=== PATIENT | female | born 1990 | race Hispanic/Latino ===

== ENCOUNTER 2018-06-28 02:54 | Inpatient (IN) | payer OTHER, SELFPAY ==
[2018-06-28] MEDS ORDERED: Morphine 4 MG/ML VIAL ONE (04:15)
[2018-06-28] MEDS ORDERED: Ondansetron ODT 4 MG TAB PO PRN (04:32)
[2018-06-28] MEDS ORDERED: Dextrose 5% in Water 1,000 ML IV PRN (04:32)
[2018-06-28] MEDS ORDERED: Dextrose 50% Abboject 50 ML SYRINGE SLOW IVP PRN (04:32)
[2018-06-28] MEDS ORDERED: Ondansetron HCl/PF 4 MG/2 ML Vial IVP PRN ×2 (04:32→12:33)
[2018-06-28 05:43] LABS: Anion Gap 15 mmol/L (10-20); BUN (Urea Nitrogen) 15 mg/dL (7.0-18.7); Calc. Creatinine Clearance 0 mL/min (70-130); Carbon Dioxide 19 mmol/L (22-29); Chloride 108 mmol/L (98-107); Estimated GFR-MDRD Greater than 90; Glucose 125 mg/dL (70-105); Potassium 3.9 mmol/L (3.5-5.1); Sodium 138 mmol/L (136-145)
[2018-06-28] MEDS: Acetaminophen 500 MG TAB PO SCH ×4 (05:50→23:15)
[2018-06-28] MEDS: traMADol HCl 50 MG TAB PO SCH ×4 (05:50→23:15)
[2018-06-28] MEDS: Ketorolac Tromethamine 30 MG/ML VIAL IVP SCH ×3 (05:50→18:40)
[2018-06-28] MEDS: Sodium Chloride 0.9% 1,000 ML IV SCH ×3 (05:58→23:16)
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
[2018-06-28 07:45] VITALS: BMI 44.9
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
--- NOTE | 2018-06-28 09:19 | RAD ---
LEFT ANKLE 3 VIEWS: HISTORY: Ankle pain, injury. FINDINGS: There is soft tissue swelling around the ankle. There is an intraarticular fracture. The fracture h as a more obliquely oriented component through the medial malleolus, but also a more vertically orien eloy component through the medial articular surface of the tibial plafond. I do not see associated fi bular fracture. IMPRESSION: Intraarticular distal tibial fracture as discussed above. POS: [facility]
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
[2018-06-28 10:12] LABS: BHCG - Serum Negative (NEGATIVE); Pregs Control Background? CLEAR/WHITE (CLR/WHITE); Pregs Control Bar Appear? YES (CONTROL BAR)
[2018-06-28] MEDS ORDERED: Ketorolac Tromethamine 30 MG/ML VIAL ONE (10:19)
[2018-06-28] MEDS ORDERED: PROPOFOL 200 MG/20 ML VIAL ONE (10:19)
[2018-06-28] MEDS ORDERED: Dexamethasone 20 MG/5 ML VIAL ONE (10:19)
[2018-06-28] MEDS ORDERED: Ondansetron HCl/PF 4 MG/2 ML Vial ONE (10:19)
[2018-06-28] MEDS ORDERED: CEFAZOLIN/Water 2 GM/20 ML SYRINGE ONE (10:46)
[2018-06-28] MEDS ORDERED: Fentanyl 100 MCG/2 ML VIAL ONE ×2 (11:18→12:48)
[2018-06-28] MEDS ORDERED: Bupivacaine PF 0.5% 30 ML VIAL ONE (11:21)
--- NOTE | 2018-06-28 12:21 | RAD ---
LEFT ANKLE 3 VIEWS: HISTORY: Intraoperative films. FINDINGS: The intraarticular distal tibial fracture is fixed with plate and screws. Bony alignment appears sat isfactory. IMPRESSION: Open reduction internal fixation distal tibial fracture. POS: [facility]
[2018-06-28] MEDS ORDERED: HYDROmorphone 2 MG/ML VIAL ONE (12:33)
[2018-06-28] MEDS ORDERED: HYDROmorphone 2 MG/ML VIAL SLOW IVP PRN (12:33)
[2018-06-28] MEDS ORDERED: Promethazine HCl 25 MG/ML VIAL SLOW IVP PRN (12:33)
[2018-06-28] MEDS ORDERED: Promethazine HCl 25 MG/ML VIAL IM PRN (12:33)
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
[2018-06-28] MEDS: CEFAZOLIN/Water 2 GM/20 ML SYRINGE SLOW IVP SCH (18:43)
[2018-06-28] MEDS: traMADol HCl 50 MG TAB PO PRN (20:31)
[2018-06-28] MEDS: Ibuprofen 800 MG TAB PO SCH (23:15)
[2018-06-29] MEDS: CEFAZOLIN/Water 2 GM/20 ML SYRINGE SLOW IVP SCH ×2 (03:40→10:43)
[2018-06-29 05:02] LABS: #Lymphocytes 1.5 thou/uL (1.20-3.40); #Monocytes 0.7 thou/uL (0.11-0.59); #Neutrophils 12.9 thou/uL (1.40-6.50); %Eosinophils 0.1 % (0.0-10.0); %Monocytes 4.7 % (0.0-10.0); %Neutrophils 85.1 % (42.0-75.0); Hemoglobin 12.1 g/dL (12.0-16.0); Mean Corpuscular HGB CONC 33.1 g/dL (32.0-36.0); Mean Corpuscular Hemoglobin 26.2 pg (27.0-31.0); Mean Platelet Volume 8.6 fL (7.4-10.4); Platelet Count 222 thou/uL (130-400); RBC Distribution Width 12.9 % (11.5-14.5); Red Blood Cell (RBC) Count 4.64 mill/uL (4.20-5.40); White Blood Cell (WBC) Count 15.2 thou/uL (4.8-10.8)
[2018-06-29] MEDS: Acetaminophen 500 MG TAB PO SCH (06:32)
[2018-06-29] MEDS: Ibuprofen 800 MG TAB PO SCH ×2 (06:33→15:20)
[2018-06-29] MEDS: traMADol HCl 50 MG TAB PO SCH (06:33)
[2018-06-29] MEDS: traMADol HCl 50 MG TAB PO PRN (06:33)
[2018-06-29] MEDS: Sodium Chloride 0.9% 1,000 ML IV SCH (06:49)
[2018-06-29] MEDS ORDERED: HYDROcodone/Acetaminophen 10/325 mg Tablet PO PRN (08:39)
[2018-06-29] MEDS ORDERED: Acetaminophen 325 MG TAB PO SCH ×2 (08:45→12:00)
[2018-06-29] MEDS ORDERED: Senokot S 8.6-50 MG TAB PO SCH (09:00)
[2018-06-29] MEDS ORDERED: Enoxaparin Sodium 40 MG/0.4 ML SYRINGE SC SCH (09:00)
[2018-06-29] MEDS ORDERED: Polyethylene Glycol 3350 17 GM Packet PO SCH (09:00)
[2018-06-29 11:32] VITALS: BP 127/86; TEMP 98.4
[2018-06-29] MEDS ORDERED: traMADol HCl 50 MG TAB PO SCH (12:00)
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
== END 2018-06-29 15:28 | disposition home or self-care (01) | DRG 494 ==
LOC: ERS 02:54 → EEVIPCON 02:54 → SURG B 04:00
PROVIDERS: ADMIT Surgery; ATTEND Surgery
PROC: 0QSH04Z Reposition Left Tibia with Internal Fixation Device, Open Approach (ICD-10-PCS; principal; 2018-06-28)
PROC: 0QUH0KZ Supplement Left Tibia with Nonautologous Tissue Substitute, Open Approach (ICD-10-PCS; 2018-06-28)
DX: S82.392A Other fracture of lower end of left tibia, initial encounter for closed fracture (principal); W08.XXXA Fall from other furniture, initial encounter
CPT/HCPCS: 27762; 36415; 36416; 76001; 80048; 84703; 85025; 86850; 86900; 86901; 96374; 96375; C1713; G0390; G8978-GP-CM; G8979-GP-CK; G8987-GO-CI; G8988-GO-CI; G8989-GO-CI; J1100; J1170; J1650; J1885; J2270; J2405; J2704; J3010; S0020

== ENCOUNTER 2018-08-17 05:15 | Emergency (ER) | payer OTHER, SELFPAY ==
[2018-08-17] MEDS ORDERED: diphenhydrAMINE 50 MG CAP ONE (05:42)
[2018-08-17] MEDS ORDERED: Metoclopramide HCl 10 MG/2 ML VIAL ONE (05:42)
[2018-08-17] MEDS ORDERED: Lidocaine 1% PF 5 ML VIAL ONE (05:50)
[2018-08-17] MEDS ORDERED: diphenhydrAMINE 25 MG CAP ONE (05:50)
[2018-08-17 06:04] LABS: Bilirubin Negative (Negative); Blood, Urine Negative (Negative); Clarity CLEAR (Clear); Glucose, Urine (Dipstick) Negative (Negative); Leukocyte Negative (Negative); Nitrite Negative (Negative); Protein, Urine (Dipstick) Negative (Neg-Trace); pH, Urine 6.5 (5.0-9.0)
[2018-08-17 06:11] LABS: Pregnancy Test - Urine (BHCG) Negative (Negative); Pregu Control Background? CLEAR/WHITE (CLR/WHITE); Pregu Control Bar Appear? YES (CONTROL BAR)
[2018-08-17] MEDS ORDERED: Ketorolac Tromethamine 30 MG/ML VIAL ONE (06:13)
[2018-08-17 06:22] LABS: Eosinophils 1 % (0-10); Hemoglobin 13.4 g/dL (12.0-16.0); Lymphocytes 32 % (21-51); MDiff Complete? YES; Mean Corpuscular HGB CONC 32.2 g/dL (32.0-36.0); Mean Corpuscular Hemoglobin 25.1 pg (27.0-31.0); Mean Platelet Volume 8.8 fL (7.4-10.4); Monocytes 7 % (0-10); Neutrophil 60 % (42-75); Nucleated RBC 1 % (0); PLT Morphology Comment Appears Adequate; Platelet Count 252 thou/uL (130-400); RBC Distribution Width 13.1 % (11.5-14.5); Red Blood Cell (RBC) Count 5.33 mill/uL (4.20-5.40); White Blood Cell (WBC) Count 12.4 thou/uL (4.8-10.8)
[2018-08-17 06:32] LABS: ALT (SGPT) 30 U/L (8-55); AST (SGOT) 25 U/L (5-34); Albumin 4.2 g/dL (3.5-5.0); Alkaline Phosphatase 68 U/L (40-150); Anion Gap 13 mmol/L (10-20); BUN (Urea Nitrogen) 14 mg/dL (7.0-18.7); Bilirubin, Total 0.3 mg/dL (0.2-1.2); Calc. Creatinine Clearance 0 mL/min (70-130); Calcium 9.3 mg/dL (7.8-10.44); Carbon Dioxide 21 mmol/L (22-29); Chloride 107 mmol/L (98-107); Estimated GFR-MDRD Greater than 90; Globulin 3.7 g/dL (2.4-3.5); Glucose 115 mg/dL (70-105); Potassium 4.1 mmol/L (3.5-5.1); Protein, Total 7.9 g/dL (6.0-8.3); Sodium 137 mmol/L (136-145)
--- NOTE | 2018-08-17 10:59 | CT ---
PRELIMINARY REPORT/[facility]/EMERGENTY AFTER-HOURS PROCEDURE CT Head Without Intravenous Contrast EXAM DATE/TIME: 08/17/2018 5:45 AM CLINICAL HISTORY: 28 years old, female; Pain; Headache; Headache not specified TECHNIQUE: Axial computed tomography images of the head/brain without intravenous contrast. COMPARISON: No relevant prior studies available. FINDINGS: Brain: Normal. No hemorrhage. No significant white matter disease. No edema. Ventricles: Normal. No ventriculomegaly. Bones/joints: Normal. No acute fracture. Sinuses: Normal as visualized. No acute sinusitis. Mastoid air cells: Normal as visualized. No mastoid effusion. Soft tissues: Normal. IMPRESSION: No acute intracranial hemorrhage. Thank you for allowing us to participate in the care of your patient. Dictated and Authenticated by: Srinivasa Longo MD 08/17/2018 6:02 AM Central Time ([place] & [place]) FINAL REPORT BRAIN CT WITHOUT IV CONTRAST: Emergency after hours exam, 5:46 a.m. 08-17-18 FINDINGS: No mass or bleed or other acute process. POS: [facility]
== END 2018-08-17 06:58 | disposition home or self-care (01) ==
LOC: ERS 05:15
DX: R51 Headache (principal); F41.9 Anxiety disorder, unspecified; F32.9 Major depressive disorder, single episode, unspecified; Z79.891 Long term (current) use of opiate analgesic
CPT/HCPCS: 64461; 70450; 80053; 81003; 81025; 85025; 96365; 96375; J1885; J2001; J2765